=== PATIENT | female | born 1990 ===

== ENCOUNTER 2017-09-25 10:46 | Observation (INO) | payer MEDICAID, OTHER ==
[2017-09-25 10:46] VITALS: BMI 36.0
--- NOTE | 2017-09-25 11:33 | ED PDOC ---
HPI: Female Pain Time Seen by Provider: 09/25/17 11:09 Chief Complaint (Nursing): Female Genitourinary Chief Complaint (Provider): my IUD needs to be removed History Per: Patient, Other (Rx from [facility]) History/Exam Limitations: no limitations Quality Of Discomfort: Cramping Associated Symptoms: denies: Fever, Chills, Nausea, Vomiting, Diarrhea Additional Complaint(s): 27yo female presents to ED on recommendation of her family planning clinic. Attempted to have her IUD removed saturday unsuccessful, took cytotec this morning for re-attempt and still unsuccessful. Patient c/o crampy pelvic pain and mild vaginal bleeding. Past Medical History Reviewed: Historical Data, Nursing Documentation, Vital Signs Vital Signs: Last Vital Signs Temp 98.1 F 09/25/17 10:50 Pulse 90 09/25/17 10:50 Resp 20 09/25/17 10:50 BP 128/73 09/25/17 10:50 Pulse Ox 98 09/25/17 10:50 - Medical History PMH: Anemia, Arthritis, Asthma (NO EXACERBATION IN A YEAR), Back Problems, Depression, Hypercholesterolemia, Chronic Pain (back pain) Denies: Chronic Kidney Disease - Family History Family History: States: Unknown Family Hx - Living Arrangements Living Arrangements: With Family - Social History Current smoker - smoking cessation education provided: No - Immunization History Hx Tetanus Toxoid Vaccination: No Hx Influenza Vaccination: No Hx Pneumococcal Vaccination: No - Home Medications Home Medications: Ambulatory Orders Medication Instructions Recorded Ibuprofen [Advil] 600 mg PO Q8H PRN 09/25/17 - Allergies Allergies/Adverse Reactions: Allergies Allergy/AdvReac Type Severity Reaction Status Date / Time No Known Allergies Allergy Verified 09/03/17 15:21 Review of Systems Constitutional: Negative for: Fever, Chills Respiratory: Negative for: Cough, Shortness of Breath Gastrointestinal: Negative for: Nausea, Vomiting, Abdominal Pain Genitourinary Female: Positive for: Vaginal Bleeding, Pelvic Pain. Negative for : Dysuria Musculoskeletal: Negative for: Neck Pain, Back Pain Physical Exam - Reviewed Nursing Documentation Reviewed: Yes Vital Signs Reviewed: Yes - Physical Exam Appears: Positive for: Well, Non-toxic Head Exam: Positive for: ATRAUMATIC Skin: Positive for: Normal Color, Warm, Dry Eye Exam: Negative for: Periorbital swelling, Conjunctival injection Neck: Positive for: Painless ROM Cardiovascular/Chest: Negative for: Tachycardia Respiratory: Negative for: Respiratory Distress Gastrointestinal/Abdominal: Positive for: Tenderness (mild lower abd tenderness b/l). Negative for: Guarding, Rebound, Hernia Extremity: Positive for: Normal ROM Neurologic/Psych: Positive for: Alert, Oriented. 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 labs reviewed, mild stable anemia HCG neg Dr Padgett attempted retrieval of IUD after ativan 0.5mg IV for anxiolysis, unsuccessful. Nitrous oxide later used for another attempt and unsuccessful. MANAGER INTERNAL obtained consent to take to OR for retrieval as unsuccessful in ED despite multiple attempts. 430p Pt states last PO (ate bagel) at 645am today Disposition - Clinical Impression Clinical Impression: Attempted IUD removal, unsuccessful - Patient ED Disposition Is Patient to be Admitted: Yes - Disposition Disposition Time: 14:30 Condition: STABLE - Pt Status Changed To: Hospital Disposition Of: Observation (operating room.)
[2017-09-25 11:47] LABS: BASO # 0.1 K/uL (0.0-0.2); BASO % 1.1 % (0.0-2.0); EOS # 0.2 K/uL (0.0-0.7); EOS % 2.5 % (0.0-4.0); HEMATOCRIT 34.4 % (34.0-47.0); LYMPH # 2.1 K/uL (1.0-4.3); LYMPH % 25.3 % (20.0-40.0); MEAN CELL VOLUME 79.4 fl (81.0-99.0); MEAN CORPUSCULAR HEMOGLOBIN 26.4 pg (27.0-31.0); MEAN CORPUSCULAR HGB CONC 33.2 g/dL (33.0-37.0); MEAN PLATELET VOLUME 7.2 fl (7.2-11.7); MONO # 0.7 K/uL (0.0-0.8); MONO % 8.3 % (0.0-10.0); NEUT # 5.2 K/uL (1.8-7.0); NEUT % 62.8 % (50.0-75.0); NRBC % 0.1 % (0.0-0.0); RED CELL DISTRIBUTION WIDTH 14.6 % (11.5-14.5); WHITE BLOOD COUNT 8.3 K/uL (4.8-10.8)
[2017-09-25 11:52] LABS: BLOOD UREA NITROGEN 12 mg/dl (7-17); CALCIUM 8.9 mg/dL (8.4-10.2); CARBON DIOXIDE 24 mmol/L (22-30); CHLORIDE 104 mmol/L (98-107); GFR AFRICAN-AMERICAN > 60; GLUCOSE,RANDOM 94 mg/dL (65-105); POTASSIUM 4.1 MMOL/L (3.6-5.0); SODIUM 136 mmol/l (132-148)
--- NOTE | 2017-09-25 12:24 | CP.PCM.CON ---
<Janeth Carpenter - Last Filed: 09/25/17 16:24> History of Present Illness - History of Present Illness History of Present Illness: CC: "I am here to get my IUD removed" HPI: 27 YO female with PMH of high cholestereol and lupus presents to ED from her [facility] clinic for IUD removal. Pt states that she had her IUD placed 7 years ago and recently pt has had vaginal bleeding (x 3 months) and cramping pelvic pain x 1 month. Pt spoke to her MD, and wanted to get her IUD removed. Pt attempted to have her IUD removed Saturday in clinic but was unsuccessful. Pt was prescribed cytotec which she took this AM for re-attempt for IUD removal but procedure was unsuccessful. Currently pt endorses crampy pelvic pain and mild vaginal bleeding, she took 3 Advil this AM with moderate relief. Denies fever, n /v/d/c. GynHx: started menstration at age 9, regular every month, lasting about 7 days. Normal paps, and no STIs OBHx: 1 for breech presentation 2009 PMH: High cholesterol, lupus SurgH: 2009 SH: denies smoking, ETOH and illicit drug use FH: hx of DM and HTN in mother, no hx of cancers in family Allergies: NKDA Meds: advil this AM Review of Systems - Constitutional Constitutional: absent: Chills, Fever - Cardiovascular Cardiovascular: absent: Chest Pain, Dyspnea - Respiratory Respiratory: absent: Cough - Gastrointestinal Gastrointestinal: Abdominal Pain (pelvic pain). absent: Constipation, Diarrhea , Nausea, Vomiting - Genitourinary Genitourinary: absent: Change in Urinary Stream, Dysuria, Urinary Frequency - Reproductive: Female Reproductive:Female: Normal Menses, Abnormal Vaginal Bleeding, Pelvic Pain - Menstruation Menstruation: Normal Menses - Neurological Neurological: absent: Dizziness, Headaches - Psychiatric Psychiatric: absent: Confusion, Depression - Endocrine Endocrine: absent: Fatigue, Palpitations Past Patient History - Past Medical History & Family History Past Medical History?: Yes - Past Social History Smoking Status: Never Smoked Alcohol: None Drugs: Denies Home Situation {Lives}: With Family - CARDIAC Hx Hypercholesterolemia: Yes - PULMONARY Hx Asthma: Yes (NO EXACERBATION IN A YEAR) - NEUROLOGICAL Hx Neurological Disorder: No Other/Comment: hx of lupus - HEENT Hx HEENT Problems: No - RENAL Hx Chronic Kidney Disease: No - ENDOCRINE/METABOLIC Hx Endocrine Disorders: Yes Hx Systemic Lupus Erythematosus: Yes - HEMATOLOGICAL/ONCOLOGICAL Hx Anemia: Yes - INTEGUMENTARY Hx Dermatological Problems: No - MUSCULOSKELETAL/RHEUMATOLOGICAL Hx Arthritis: Yes - GASTROINTESTINAL Hx Gastrointestinal Disorders: No - GENITOURINARY/GYNECOLOGICAL Hx Genitourinary Disorders: Yes Hx Urinary Tract Infection: Yes - PSYCHIATRIC Hx Depression: Yes - SURGICAL HISTORY Hx Surgeries: Yes Hx Section: Yes - ANESTHESIA Hx Anesthesia: Yes Hx Anesthesia Reactions: No Meds Allergies/Adverse Reactions: Allergies Allergy/AdvReac Type Severity Reaction Status Date / Time No Known Allergies Allergy Verified 09/03/17 15:21 Physical Exam - Head Exam Head Exam: ATRAUMATIC, NORMAL INSPECTION - Eye Exam Eye Exam: EOMI, Normal appearance - ENT Exam ENT Exam: Mucous Membranes Moist - Neck Exam Neck exam: Positive for: Full Rom, Normal Inspection - Respiratory Exam Respiratory Exam: Clear to Auscultation Bilateral, NORMAL BREATHING PATTERN - Cardiovascular Exam Cardiovascular Exam: REGULAR RHYTHM, +S1, +S2 - GI/Abdominal Exam GI & Abdominal Exam: Normal Bowel Sounds, Soft. absent: Distended, Guarding - Exam Speculum exam: NORMAL SPECULUM EXAM (with IUD string noted, mild vaginal bleeding ). absent: Cervical Discharge - Extremities Exam Extremities exam: Positive for: full ROM, normal inspection - Back Exam Back exam: absent: CVA tenderness (L), CVA tenderness (R) - Neurological Exam Neurological exam: Alert, Normal Gait, Oriented x3 - Psychiatric Exam Psychiatric exam: Anxious, Normal Affect, Normal Mood - Skin Skin Exam: Dry, Intact, Normal Color, Warm Results - Vital Signs Recent Vital Signs: Last Vital Signs Temp 98.1 F 09/25/17 10:50 Pulse 90 09/25/17 10:50 Resp 20 09/25/17 10:50 BP 128/73 09/25/17 10:50 Pulse Ox 98 09/25/17 11:34 - Labs Result Diagrams: 09/25/17 11:28 09/25/17 11:28 Labs: Laboratory Results - last 24 hr 09/25/17 09/25/17 09/25/17 11:28 11:28 11:28 WBC 8.3 RBC 4.33 Hgb 11.4 L Hct 34.4 MCV 79.4 L MCH 26.4 L MCHC 33.2 RDW 14.6 H Plt Count 339 MPV 7.2 Neut % (Auto) 62.8 Lymph % (Auto) 25.3 Cataño % (Auto) 8.3 Eos % (Auto) 2.5 Baso % (Auto) 1.1 Neut # 5.2 Lymph # 2.1 Cataño # 0.7 Eos # 0.2 Baso # 0.1 Sodium 136 Potassium 4.1 Chloride 104 Carbon Dioxide 24 Anion Gap 12 BUN 12 Creatinine 0.7 Est GFR ( Amer) > 60 Est GFR (Non-Af Amer) > 60 Random Glucose 94 Calcium 8.9 BBK History Checked Patient has bt Assessment & Plan - Assessment and Plan (Free Text) Assessment: Assessment/Plan: 27 YO female with PMH of asthma, high cholesterol and lupus presents to ED from her MD clinic for IUD removal. Transvaginal u/s was significant for IUD seen centrally within the uterine endometrial echo complex. Low lying, not seen within the cervix. Adherent IUD -nitrous oxide -ativan administered -An attempt was made to remove the IUD bedside in ED but pt was uncomfortable, and did not tolerating the procedure well. Pt consented to try the procedure in the OR under general anesthesia, risks of procedure explained to pt and pt agrees with plan. -salpingoscopy, IUD removal <Cee Padgett - Last Filed: 09/25/17 19:47> History of Present Illness - History of Present Illness History of Present Illness: OB Hospitalist Addendum: The patient was seen and examined by me. Agree w/ above. 27 yo who was sent from the clinic for possibly embedded IUD. Patient reports that she had the copper IUD placed about 7 years ago and started to have irregular bleeding about 3 months ago when she bled x 1 month, also reports that she had cramping x 1month about a month and 1/2 ago after her period. Patient also reports recent weight gain. Patient reports that the nurse practitioner could not remove the IUD today in the office. In ED, patient was given IV 0.5 mg Ativan and nitrous oxide. Speculum was placed. Betadine was applied to the cervix x 3. Tenaculum was placed on anterior lip of the cervix. The cervix was gently dilated. The Ring forceps were used to pull the IUD strings and the strings were torn and no longer visible. It was then decided that the patient would need to be taken to the OR for the IUD to be removed. The patient was consented for exam under anesthesia, cervical dilation, hysteroscopy, and removal of IUD. The patient was then admitted as observation to the operating room. (ES) Meds - Medications Medications: Current Medications Hydromorphone HCl (Dilaudid) 0.5 mg IVP Q5M PRN PRN Reason: Pain, moderate (4-7) Stop: 09/25/17 20:22 Lactated Ringer's (Lactated Ringer's) 1,000 mls @ 100 mls/hr IV .Q10H MAYI Ondansetron HCl (Zofran Inj) 4 mg IVP ONCE PRN PRN Reason: Nausea/Vomiting Stop: 09/25/17 20:22 Results - Vital Signs Recent Vital Signs: Last Vital Signs Temp 98.4 F 09/25/17 19:10 Pulse 83 09/25/17 19:10 Resp 20 09/25/17 19:10 BP 122/70 09/25/17 19:10 Pulse Ox 100 09/25/17 19:10 - Labs Result Diagrams: 09/25/17 11:28 09/25/17 11:28 Labs: Laboratory Results - last 24 hr 09/25/17 09/25/17 09/25/17 11:28 11:28 11:28 WBC 8.3 RBC 4.33 Hgb 11.4 L Hct 34.4 MCV 79.4 L MCH 26.4 L MCHC 33.2 RDW 14.6 H Plt Count 339 MPV 7.2 Neut % (Auto) 62.8 Lymph % (Auto) 25.3 Cataño % (Auto) 8.3 Eos % (Auto) 2.5 Baso % (Auto) 1.1 Neut # 5.2 Lymph # 2.1 Cataño # 0.7 Eos # 0.2 Baso # 0.1 Sodium 136 Potassium 4.1 Chloride 104 Carbon Dioxide 24 Anion Gap 12 BUN 12 Creatinine 0.7 Est GFR ( Amer) > 60 Est GFR (Non-Af Amer) > 60 Random Glucose 94 Calcium 8.9 Beta HCG, Quant < 2.39 Blood Type Antibody Screen BBK History Checked 09/25/17 11:28 WBC RBC Hgb Hct MCV MCH MCHC RDW Plt Count MPV Neut % (Auto) Lymph % (Auto) Cataño % (Auto) Eos % (Auto) Baso % (Auto) Neut # Lymph # Cataño # Eos # Baso # Sodium Potassium Chloride Carbon Dioxide Anion Gap BUN Creatinine Est GFR ( Amer) Est GFR (Non-Af Amer) Random Glucose Calcium Beta HCG, Quant Blood Type A POSITIVE Antibody Screen Negative BBK History Checked Patient has bt
--- NOTE | 2017-09-25 13:26 | US ---
HISTORY: imbedded IUD, pain/bleeding COMPARISON: None available. TECHNIQUE: Transabdominal and transvaginal FINDINGS: UTERUS: Measures 8.2 x 3.1 x 5.2 cm. Normal in size and appearance. No fibroid or other mass lesion seen. ENDOMETRIUM: Measures 5 mm in diameter. Intrauterine device noted centrally within the endometrial echo complex. CERVIX: No cervical abnormality identified. RIGHT OVARY: Measures 3.0 x 2.0 x 3.1 cm. No solid mass. Normal flow. LEFT OVARY: Measures 2.9 x 2.4 x 2.2 cm. No solid mass. Normal flow. FREE FLUID: No significant free fluid noted. OTHER FINDINGS: None. IMPRESSION: Intrauterine device noted centrally within the uterine endometrial echo complex. It is somewhat low-lying. It is not seen within the cervix. The remainder of the examination is unremarkable.
[2017-09-25] MEDS ORDERED: Povidone Iodine Topical 10% Sol ONE (14:33)
[2017-09-25] MEDS ORDERED: Succinylcholine 200 mg/10 ml Inj IV ONE (16:43)
[2017-09-25] MEDS ORDERED: Propofol 10 mg/ml Inj (20 ML) ONE (16:43)
[2017-09-25] MEDS ORDERED: Lidocaine 2% MPF (5 ml) Inj ONE (16:43)
[2017-09-25] MEDS ORDERED: Rocuronium 10 mg/ml (5 ml) ONE (16:43)
[2017-09-25] MEDS ORDERED: Lidocaine 4% (Laryng-O-Jet) Kit MM ONE (16:43)
[2017-09-25] MEDS ORDERED: Phenylephrine 10 mg/ml Inj ONE (16:47)
[2017-09-25] MEDS ORDERED: Dexamethasone 4 mg/1 ml ONE (16:47)
[2017-09-25] MEDS ORDERED: ceFAZolin IV 1 gm in Dextrose 0 GM/0 ML BAG IVPB ONE (17:09)
[2017-09-25] MEDS ORDERED: Ferric Subsulfate Sol(60 mL) ONE (17:09)
[2017-09-25] MEDS ORDERED: Strong Iodine Topical Sol. 5%-10% ONE (17:09)
[2017-09-25] MEDS ORDERED: Bupivacaine 0.5% Inj(30mL) ONE (17:10)
[2017-09-25] MEDS ORDERED: Lidocaine 1% Inj (20ml) ONE (17:10)
[2017-09-25] MEDS ORDERED: Sodium Chloride 0.9% 1,000 ML IV ONE (17:26)
[2017-09-25] MEDS ORDERED: Midazolam 2 MG/2 ML VIAL ONE (17:28)
[2017-09-25] MEDS ORDERED: HYDROmorphone 0.5 mg/0.5 ml ISec IVP PRN (18:22)
[2017-09-25] MEDS ORDERED: Lactated Ringer's 1,000 ML IV ONE (18:24)
[2017-09-25] MEDS ORDERED: Lactated Ringer's 1,000 ML IV SCH (18:30)
[2017-09-25] MEDS ORDERED: Pneumococcal 23-Valent Vaccine IM ONE (20:22)
[2017-09-25] MEDS ORDERED: Influenza Vaccine 18yr & older 0.5 ML/45 MCG SYR IM ONE (20:44)
[2017-09-25 21:48] VITALS: RESP 19
[2017-09-25 21:50] VITALS: BP 119/76; PULSE 89; TEMP 97.8; O2SAT 96
--- NOTE | 2017-09-25 23:11 | OP ---
PROCEDURE DATE: 09/25/2017 PREOPERATIVE DIAGNOSIS: This is a 27-year-old G1, P1-0-0-1 with retained intrauterine device that was not able to be removed in the office or in the Emergency Department. POSTOPERATIVE DIAGNOSIS: This is a 27-year-old G1, P1-0-0-1 with retained intrauterine device that was not able to be removed in the office or in the Emergency Department. PROCEDURE: Exam under anesthesia, cervical dilation, hysteroscopy, and removal of intrauterine device with Packing forceps. SURGEON: Elsi Padgett MD OPERATIVE FINDINGS: A copper IUD was in the uterine cavity. COMPLICATIONS: None. DEFICIT: None. BLOOD LOSS: 15 mL. DESCRIPTION OF PROCEDURE: The patient was taken into the operating room with an IV running. She was placed under general endotracheal tube anesthesia and the IV was replaced. A time-out was done. The patient was placed in the dorsal lithotomy position. She was prepped and draped in the normal sterile fashion in the dorsal lithotomy position. Exam under anesthesia was done. A weighted speculum was placed in the posterior fornix of the vagina and a Nunes speculum was placed in the anterior wall of the vagina. A single-tooth tenaculum was placed at the anterior lip of the cervix. The cervix was then dilated to accommodate the 5-mm scope. The scope was placed through the cervix into the uterus with the findings above. The scope was then removed. The cervix was then further dilated to a #18 dilator. The Packing forceps were then placed through the cervix into the uterus and used to grasp the IUD and remove it from the cavity, and the copper IUD appeared intact. The 5-mm scope was then placed again through the cervix into the cavity to ensure that the uterus was intact. Both ostia were seen and there was no remnant of the IUD seen. The scope was then removed from the uterus and the vagina. The tenaculum was then removed from the cervix. Manual pressure with a sponge on a Ring forceps was applied for hemostasis. AstrinGyn was then placed at the tenaculum site for further hemostasis. All instruments were then removed from the vagina and the patient was awakened and taken to the recovery room in stable condition. Elsi Padgett MD [facility] # [id number] ZHANG
== END 2017-09-25 21:41 | disposition home or self-care (01) ==
LOC: H.ER 10:46 → H.ERHOLD 15:22 → H.MEDSURG1 19:50
PROVIDERS: ADMIT Obstetrics & Gynecology; ATTEND Obstetrics & Gynecology
DX: Z30.431 Encounter for routine checking of intrauterine contraceptive device (principal); E78.00 Pure hypercholesterolemia, unspecified; J45.909 Unspecified asthma, uncomplicated; D64.9 Anemia, unspecified; M32.9 Systemic lupus erythematosus, unspecified; Z83.3 Family history of diabetes mellitus; Z87.440 Personal history of urinary (tract) infections; Z23 Encounter for immunization
CPT/HCPCS: 58562; 76830; 76856; 80048; 81025; 84702; 85025; 86850; 86900; 88304; 90471; 96374; 99284; G0378; J0330; J0694; J1100; J1885; J2060; J2250; J2370; J2405; J2704; J2765; J3010; J7040; J7120; Q2035

== ENCOUNTER 2018-06-29 13:51 | Emergency (ER) | payer MEDICAID ==
[2018-06-29 13:51] VITALS: BMI 36.0
[2018-06-29 13:56] VITALS: PULSE 68
[2018-06-29] MEDS ORDERED: Lidocaine 5% Patch TD STA (14:06)
--- NOTE | 2018-06-29 14:10 | ED PDOC ---
HPI: Back Time Seen by Provider: 06/29/18 13:59 Chief Complaint (Nursing): Back Pain Chief Complaint (Provider): low back pain History Per: Patient, EMS Additional Complaint(s): 28-year-old female with history of lupus and chronic back pain presents with exacerbation of lower back pain that started a few days ago. Patient denies any trauma or injury. She states that Tylenol has not been helping her pain. Patient states a friend of hers gave her oxycodone which did help. Seen in the past by paint roller assembler but has not been under the care of of pain management for over a year. She denies radiation of pain. Patient denies bowel or bladder dysfunction. PMD: Osmani James NP Past Medical History Reviewed: Historical Data, Nursing Documentation, Vital Signs Vital Signs: Last Vital Signs Temp 98.8 F 06/29/18 13:54 Pulse 68 06/29/18 13:54 Resp 18 06/29/18 13:54 BP 113/75 06/29/18 13:54 Pulse Ox 99 06/29/18 13:54 - Medical History PMH: Anemia, Arthritis, Asthma, Back Problems, Depression, Hypercholesterolemia , Chronic Pain (back pain) - Family History Family History: States: No Known Family Hx - Living Arrangements Living Arrangements: With Family - Social History Current smoker - smoking cessation education provided: No Alcohol: None Drugs: Denies - Home Medications Home Medications: Ambulatory Orders Medication Instructions Recorded Ibuprofen [Advil] 600 mg PO Q8H PRN 09/25/17 Nabumetone [Relafen] 500 mg PO BID #20 tab 06/29/18 Prednisone 50 mg PO DAILY #5 tablet 06/29/18 diaZEpam [Valium] 5 mg PO Q8 PRN #20 tab 06/29/18 - Allergies Allergies/Adverse Reactions: Allergies Allergy/AdvReac Type Severity Reaction Status Date / Time No Known Allergies Allergy Verified 09/03/17 15:21 Review of Systems ROS Statement: Except As Marked, All Systems Reviewed And Found Negative Constitutional: Negative for: Fever Cardiovascular: Negative for: Chest Pain Respiratory: Negative for: Cough Gastrointestinal: Negative for: Nausea, Vomiting Genitourinary Female: Negative for: Dysuria, Frequency, Incontinence Musculoskeletal: Positive for: Back Pain. Negative for: Leg Pain Physical Exam - Reviewed Nursing Documentation Reviewed: Yes Vital Signs Reviewed: Yes - Physical Exam Appears: Positive for: Well, Non-toxic, No Acute Distress Skin: Positive for: Normal Color. Negative for: Rash Eye Exam: Positive for: Normal appearance Cardiovascular/Chest: Positive for: Regular Rate, Rhythm Respiratory: Positive for: Normal Breath Sounds Gastrointestinal/Abdominal: Positive for: Soft. Negative for: Tenderness, Distended, Guarding Back: Positive for: Vertebral Tenderness (Tenderness and muscle spasm across lower lumbar region, no midline tenderness or step-off), Other (Movement of torso elicits pain to lower). Negative for: L CVA Tenderness, R CVA Tenderness Extremity: Positive for: Normal ROM Neurologic/Psych: Positive for: Alert, Oriented, Gait (steady) - Laboratory Results Urine POC: Negative Urine dip results: Negative for: Leukocyte Esterase, Blood, Nitrate, Ketones, Glucose, Bilirubin, Protein - ECG O2 Sat by Pulse Oximetry: 99 Pulse Ox Interpretation: Normal - Other Rad LS Spine X-ray X-Ray: Interpreted by Me, Viewed By Me X-Ray Interpretation: No fracture, no dislocation Medical Decision Making Medical Decision Makin28 y/o F with exacerbation of low back pain Plan: IM toradol 30 mg IM solumedrol PO valium 5 mg LS Spine X-ray Patient reports improvement to pain after meds were given. She is aware of x- ray results. All questions answered. patient given prescriptions for Valium, prednisone and Relafen. Patient also states that she has follow-up tomorrow with primary doctor. Disposition - Clinical Impression Clinical Impression: Back strain - Patient ED Disposition Is Patient to be Admitted: No Counseled Patient/Family Regarding: Studies Performed, Diagnosis, Need For Followup, Rx Given - Disposition Referrals: Osmani James, ETHEL, [facility] [Primary Care Provider] - Disposition: Routine/Home Disposition Time: 16:20 Condition: STABLE Additional Instructions: Take prescription meds as directed. Follow-up as scheduled tomorrow with primary doctor. Speak with primary doctor about obtaining referral for MRI of lumbar spine. Obtain referral from primary doctor for paint roller assembler. Prescriptions: diaZEpam [Valium] 5 mg PO Q8 PRN #20 tab PRN Reason: Muscle Pain Nabumetone [Relafen] 500 mg PO BID #20 tab Prednisone 50 mg PO DAILY #5 tablet Instructions: Back Exercises, Muscle Strain, Low Back Pain in Adults Forms: [employer] (Korean)
[2018-06-29] MEDS ORDERED: Lidocaine 5% Patch TD ONE (14:24)
--- NOTE | 2018-06-29 15:12 | RAD ---
Date of service: 06/29/2018 PROCEDURE: Radiographs of the Lumbar Spine. HISTORY: Pain COMPARISON: No prior. FINDINGS: BONES: No evidence of acute compression fracture nor retropulsed fragments. Vertebral bodies exhibit normal stature. . Slight dextroscoliosis centered at the L4-L5 level however mild spasm or side bending may contribute. Vertebral bodies otherwise exhibit normal alignment. Facets normally aligned DISC SPACES: There is mild disc space narrowing seen at the L5-S1 level with small marginal anterior osteophyte formation. Facets also mildly hypertrophic L5-S1 and L4-L5 levels. OTHER FINDINGS: None. IMPRESSION: No acute fractures. Mild degenerative spondylosis most notably affecting the L5-S1 level as above.
[2018-06-29 16:33] VITALS: BP 117/78; RESP 16; TEMP 98.2; O2SAT 98
== END 2018-06-29 16:33 | disposition home or self-care (01) ==
LOC: H.ER 13:51
DX: S39.012A Strain of muscle, fascia and tendon of lower back, initial encounter (principal); Y92.89 Other specified places as the place of occurrence of the external cause; E78.00 Pure hypercholesterolemia, unspecified; G89.29 Other chronic pain; M32.9 Systemic lupus erythematosus, unspecified
CPT/HCPCS: 72100; 81025; 96372; 99284; J1885; J2930

== ENCOUNTER 2018-07-15 19:12 | Emergency (ER) | payer OTHER, MEDICAID ==
[2018-07-15 19:13] VITALS: BMI 36.0
[2018-07-15 19:29] VITALS: BP 119/78; PULSE 97; RESP 18; TEMP 98.5; O2SAT 99
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
--- NOTE | 2018-07-16 11:40 | RAD ---
Date of service: 07/15/2018 PROCEDURE: Cervical Spine Radiographs. HISTORY: Pain. COMPARISON: None. FINDINGS: BONES: There is normal alignment of the cervical vertebral bodies. There is mild reversal of normal cervical lordosis. Vertebral height is normal. Bone mineralization is normal. There is no acute fracture or traumatic anterior listhesis. The craniocervical junction is normal. The atlantoaxial joint normal. DISC SPACES: The disc heights are maintained. SOFT TISSUES: Normal. No prevertebral soft tissue swelling. OTHER FINDINGS: None. IMPRESSION: No acute fracture or traumatic anterolisthesis. Mild reversal of normal cervical lordosis may be positional or related to muscle spasm.
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
== END 2018-07-15 21:30 | disposition home or self-care (01) ==
LOC: H.ER 19:12
DX: S16.1XXA Strain of muscle, fascia and tendon at neck level, initial encounter (principal); S39.012A Strain of muscle, fascia and tendon of lower back, initial encounter; V43.52XA Car driver injured in collision with other type car in traffic accident, initial encounter; Y92.410 Unspecified street and highway as the place of occurrence of the external cause; E78.00 Pure hypercholesterolemia, unspecified; G89.29 Other chronic pain
CPT/HCPCS: 72040; 72100; 81025; 96372; 99284; J1885